=== PATIENT | male | born 1940 | race Caucasian/White ===

== ENCOUNTER → 2017-01-06 | Outpatient (CLI) | payer MEDICARE ==
--- NOTE | 2017-01-06 07:55 | US ---
EXAMINATION TYPE: US bladder DATE OF EXAM: 01/06/2017 7:44 AM COMPARISON: NONE CLINICAL HISTORY: 76-year-old male N39.41 Urge Incontinence. TECHNIQUE: Multiple sonographic images of the bladder were obtained. FINDINGS: SMART GRID ENGINEER NOTES: Large body habitus, prostate prominent Initial underdistention of the bladder limits its evaluation. There is prevoid volume of 30 mL. Only the right ureteral jet was seen. Post Void Residual Volume: 4.3 mL. Normal Post Void Residual (less than 50ml): yes IMPRESSION: 1. Initial underdistention of the bladder limits its evaluation with a prevoid bladder volume of 30 m L. 2. Postvoid bladder volume of 4 mL, within normal limits; no sonographic evidence for urinary retenti on. 3. Intensive Care Anaesthetist notes a prominent prostate gland during real-time scanning.
== END | disposition home or self-care (01) ==
LOC: RADUSWWP 07:18
PROVIDERS: ATTEND Family Medicine
DX: N32.89 Other specified disorders of bladder (principal)
CPT/HCPCS: 76857

== ENCOUNTER 2017-03-31 10:28 | Day surgery (SDC) | payer MEDICARE ==
[2017-03-29 15:57] VITALS: BMI 34.7
[~2017-03-31 10:28] MED LIST: LACTATED RINGERS 1,000 ML IV SCH; LIDOCAINE 1% 20 ML VIAL (10MG/ML) FOR IV START INTRADERMA PRN
[2017-03-31] MEDS ORDERED: LIDOCAINE 1% INJ 10MG/ML (20 ML MDV) ONE (11:00)
[2017-03-31] MEDS ORDERED: PROPOFOL 10 MG/ML 20 ML VIAL IV ONE (11:00)
[2017-03-31 11:02] VITALS: RESP 16; TEMP 98.1
--- NOTE | 2017-03-31 11:34 | P.PCN ---
Date of Procedure: 03/31/17 Preoperative Diagnosis: Postoperative Diagnosis: Procedure(s) Performed: BRIEF HISTORY: Patient is a 76-year-old pleasant white male, scheduled for an elective colonoscopy as a part of screening for colorectal neoplasia. PROCEDURE PERFORMED: Colonoscopy. PREOPERATIVE DIAGNOSIS: Screening for colorectal neoplasia. IV sedation per Anesthesia. PROCEDURE: After informed consent was obtained, the patient, was brought into the endoscopy unit. IV sedation was administered by Anesthesia under continuous monitoring. Digital rectal examination was normal. Initially the Olympus CF- 160 flexible video colonoscope was then inserted in the rectum, gradually advanced into the cecum without any difficulty. Careful examination was performed as the scope was gradually being withdrawn. Ileocecal valve and the appendiceal orifice were visualized and appeared normal. Prep was excellent. Mucosa of the cecum, ascending colon, transverse colon, descending colon, sigmoid colon, and rectum appeared normal. Retroflexion was performed in the rectum and no lesions were seen. The patient tolerated the procedure well. IMPRESSION: Normal-appearing colon from rectum to cecum with no evidence of colorectal neoplasia . RECOMMENDATIONS: Findings of this examination were discussed with the patient is well as his family. He was advised to be a high-fiber diet. At his age, I would not recommend any further screening colonoscopy. Implants: Indications for Procedure: Operative Findings: Description of Procedure:
[2017-03-31 12:02] VITALS: PULSE 58
[2017-03-31 12:29] VITALS: BP 137/69
== END 2017-03-31 12:39 | disposition home or self-care (01) ==
LOC: ORWHC2ENDO 10:28
PROVIDERS: ATTEND Internal Medicine Gastroenterology
DX: Z12.11 Encounter for screening for malignant neoplasm of colon (principal); I10 Essential (primary) hypertension; I25.10 Atherosclerotic heart disease of native coronary artery without angina pectoris; J44.9 Chronic obstructive pulmonary disease, unspecified; K21.9 Gastro-esophageal reflux disease without esophagitis; E07.9 Disorder of thyroid, unspecified; Z91.048 Other nonmedicinal substance allergy status; Z79.82 Long term (current) use of aspirin; Z79.891 Long term (current) use of opiate analgesic; Z79.899 Other long term (current) drug therapy; Z95.1 Presence of aortocoronary bypass graft
CPT/HCPCS: G0121; J2001; J2704

== ENCOUNTER 2021-08-12 15:03 | Emergency (ER) | payer MEDICARE ==
[2021-08-12] MEDS ORDERED: ACETAMINOPHEN TAB 500 MG TAB PO STA (19:33)
[2021-08-12] MEDS ORDERED: SODIUM CHLORIDE 0.9% 500 ML 500 ML IV STA (19:33)
--- NOTE | 2021-08-12 19:57 | XR ---
EXAMINATION TYPE: XR chest 1V portable DATE OF EXAM: 08/12/2021 COMPARISON: 06/12/2019 INDICATION: Cough TECHNIQUE: Single frontal view of the chest is obtained. FINDINGS: The heart size is normal. The pulmonary vasculature is normal. Mild bibasilar infiltrates are present. Correlate for atelectasis or pneumonia. Consider atypical pne umonia. IMPRESSION: 1. Mild bibasilar infiltrates. Correlate for atelectasis, pneumonia, consider atypical pneumonia. Fol low-up can be performed.
[2021-08-12] MEDS ORDERED: SODIUM CHLORIDE 0.9% 50 ML IVPB ONE (20:00)
[2021-08-12] MEDS ORDERED: CASIRIVIMAB (REGN10933) (EUA) 600 MG, IMDEVIMAB (REGN10987) (EUA) 600 MG in SODIUM CHLO... IVPB ONE (20:00)
[2021-08-12 20:11] LABS: Albumin 3.2 g/dL (3.5-5.0); Calcium 8.1 mg/dL (8.4-10.2); Potassium 4.4 mmol/L (3.5-5.1); Total Bilirubin 0.4 mg/dL (0.2-1.3); Total Protein 5.9 g/dL (6.3-8.2)
[2021-08-12 20:13] LABS: Basophils % (A) 0 %; Eosinophils # (A) 0.1 k/uL (0-0.7); Eosinophils % (A) 1 %; HCT 44.7 % (39.0-53.0); HGB 14.9 gm/dL (13.0-17.5); Lymphocytes # (A) 1.1 k/uL (1.0-4.8); Lymphocytes % (A) 25 %; MCH 30.7 pg (25.0-35.0); MCHC 33.4 g/dL (31.0-37.0); MCV 92.1 fL (80.0-100.0); Mean Platelet Volume 8.2; Monocytes # (A) 0.4 k/uL (0-1.0); Monocytes % (A) 9 %; Neutrophils # (A) 2.6 k/uL (1.3-7.7); Neutrophils % (A) 60 %; RBC 4.85 m/uL (4.30-5.90); RDW 13.9 % (11.5-15.5); WBC 4.4 k/uL (3.8-10.6)
[2021-08-12 20:39] LABS: Platelet Count 94 k/uL (150-450)
--- NOTE | 2021-08-12 21:09 | ED ---
URI HPI - General Chief Complaint: Upper Respiratory Infection Stated Complaint: Possible COVID,sent by pcp for o2 sat check Time Seen by Provider: 08/12/21 19:20 Source: patient, RN notes reviewed Mode of arrival: wheelchair Limitations: no limitations - History of Present Illness Initial Comments: Patient is an 80-year-old male with history of heart disease, hypertension, emphysema, presenting to the emergency department after testing positive for c ovid today. Patient states he started having some nausea symptoms about 6 days ago and developed a cough and chest congestion. He took a home covid test today which turned out positive, his doctor sent him in for monoclonal antibodies and a "check-up". He has been fully vaccinated. He states he's been having low- grade fevers, he did not take anything for this yet today. He denies any abdominal pain, nausea or vomiting, no chest pain. He states he does feel a little bit short of breath at times but states that is normal for him considering his emphysema. He has been doing his at home nebulizer treatments. Patient denies any dizziness or lightheadedness, he's been able to eat and drink without difficulty. Patient has no further complaints at this time. Upon arrival to the ER, his temperature is 100.3, 90% on room air, rest of vitals normal. - Related Data Home Medications Medication Instructions Recorded Confirmed Aspirin 81 mg PO DAILY 08/05/14 03/29/17 Ezetimibe [Zetia] 10 mg PO HS 08/05/14 03/29/17 HYDROcodone/APAP 10-325MG [[place] 1 tab PO DAILY PRN 08/05/14 03/29/17 10-325] Lisinopril [Zestril] 30 mg PO DAILY 08/05/14 03/29/17 carvediloL [Coreg*] 12.5 mg PO BID 08/05/14 03/29/17 methIMAzole [Tapazole] 5 mg PO DAILY 08/05/14 03/29/17 rOPINIRole HCL [Requip Xl] 2 mg PO HS 08/05/14 03/29/17 ALPRAZolam [Xanax] 0.25 mg PO DAILY PRN 03/29/17 03/29/17 Alfuzosin HCl [Alfuzosin HCl ER] 10 mg PO HS 03/29/17 03/29/17 Multivit-Min/FA/Lycopen/Lutein 1 each PO DAILY 03/29/17 03/29/17 [Centrum Silver Tablet] Nitroglycerin Sl Tabs [Nitrostat] 0.4 mg SUBLINGUAL Q5M PRN 03/29/17 03/29/17 Pantoprazole Sodium 40 mg PO HS 03/29/17 03/29/17 Tiotropium [place] [Spiriva] 1 cap INHALATION DAILY 03/29/17 03/31/17 clonazePAM [KlonoPIN] 1 mg PO BID 03/29/17 03/29/17 Previous Rx's Medication Instructions Recorded Azithromycin [Zithromax Z-pack (6 0 mg PO DIRECTED #6 tab 08/12/21 tabs)] Dexamethasone [Decadron] 6 mg PO DAILY 5 Days #5 tablet 08/12/21 Allergies Allergy/AdvReac Type Severity Reaction Status Date / Time adhesive tape AdvReac Unknown tears skin Verified 08/12/21 16:09 Review of Systems ROS Statement: Those systems with pertinent positive or pertinent negative responses have been documented in the HPI. ROS Other: All systems not noted in ROS Statement are negative. Past Medical History Past Medical History: Coronary Artery Disease (CAD), Cancer, Chest Pain / Angina, GERD/Reflux, Hypertension, Prostate Disorder, Thyroid Disorder Additional Past Medical History / Comment(s): EMPHYSEMA, DECREASED LUNG CAPACITY, OCCASIONAL "BURNING " IN CHEST. CONSTIPATION, DIVERTICULITIS, BACK PA IN, SKIN CANCER, ENLARGED THYROID, ENLARGED PROSTATE. History of Any Multi-Drug Resistant Organisms: None Reported Past Surgical History: Back Surgery, Coronary Bypass/CABG, Heart Catheterization With Stent Additional Past Surgical History / Comment(s): SPINAL FUSION, NECK FUSION- HAS " METAL CAGE IN LOWER BACK & NECK" CABG X3 (1994) Past Anesthesia/Blood Transfusion Reactions: No Reported Reaction Date of Last Stent Placement:: 2004 Past Psychological History: Anxiety Smoking Status: Never smoker Past Alcohol Use History: Occasional Past Drug Use History: None Reported - Past Family History Mother Family Medical History: Cancer Additional Family Medical History / Comment(s): BONE CANCER Daughter(s) Family Medical History: Cancer Additional Family Medical History / Comment(s): FROM [place] General Exam - General Exam Comments Initial Comments: GENERAL: Patient is well-developed and well-nourished. Patient is nontoxic and in no acute distress. HEAD: Atraumatic, normocephalic. EYES: Pupils equal round and reactive to light, extraocular movements intact, sclera anicteric, conjunctiva are normal. Eyelids were unremarkable. ENT: TMs normal, nares patent, oropharynx clear without exudates. Moist mucous membranes. NECK: Normal range of motion, supple without lymphadenopathy or JVD. LUNGS: Unlabored respirations. Scattered wheezes throughout HEART: Regular rate and rhythm without murmurs, rubs or gallops. ABDOMEN: Soft, nontender, normoactive bowel sounds. No guarding, no rebound. No masses appreciated. MUSCULOSKELETAL: Normal extremities with adequate strength and normal range of motion, no pitting or edema. No clubbing or cyanosis. NEUROLOGICAL: Patient is alert and oriented x 3. Normal speech, normal gait. PSYCH: Normal mood, normal affect. SKIN: Warm, Dry, normal turgor, no rashes or lesions noted. Limitations: no limitations Course Vital Signs 08/12/21 16:05 Temperature 100.3 F H Pulse Rate 80 Respiratory 18 Rate Blood Pressure 150/75 O2 Sat by Pulse 90 L Oximetry Medical Decision Making - Medical Decision Making Patient is a 80-year-old male with history of heart disease, emphysema, presenting after testing positive at home for covid. He is requesting monoclona l antibodies. He did have a slight temperature on arrival, 90% on room air. Does have some scattered wheezes throughout. He is in no acute distress. Basic labs are stable, Chest x-ray shows mild bibasilar infiltrates, correlate for atelectasis, pneumonia. I do not feel like this a big change from his previous. Patient received monoclonal antibodies without adverse side effects. His vital signs remained stable. He did receive some fluids as well. I did recommend for him to continue with his breathing treatments at home, I will start him on an antibiotic for possible pneumonia as well as a short course of steroids. He is agreeable to this plan of care. He will follow up with his pr imary care. Return parameters were discussed with him and he verbalized understanding. Case discussed with Dr. Gonzalez. - Lab Data Result diagrams: 08/12/21 19:50 08/12/21 19:50 Lab Results 08/12/21 08/12/21 08/12/21 Range/Units 19:50 19:50 19:50 WBC 4.4 (3.8-10.6) k/uL RBC 4.85 (4.30-5.90) m/uL Hgb 14.9 (13.0-17.5) gm/dL Hct 44.7 (39.0-53.0) % MCV 92.1 (80.0-100.0) fL MCH 30.7 (25.0-35.0) pg MCHC 33.4 (31.0-37.0) g/dL RDW 13.9 (11.5-15.5) % Plt Count 94 L (150-450) k/uL MPV 8.2 Neutrophils % 60 % Lymphocytes % 25 % Monocytes % 9 % Eosinophils % 1 % Basophils % 0 % Neutrophils # 2.6 (1.3-7.7) k/uL Lymphocytes # 1.1 (1.0-4.8) k/uL Monocytes # 0.4 (0-1.0) k/uL Eosinophils # 0.1 (0-0.7) k/uL Basophils # 0.0 (0-0.2) k/uL Manual Slide Review Performed Sodium 137 (137-145) mmol/L Potassium 4.4 (3.5-5.1) mmol/L Chloride 100 (98-107) mmol/L Carbon Dioxide 33 H (22-30) mmol/L Anion Gap 4 mmol/L BUN 32 H (9-20) mg/dL Creatinine 1.53 H (0.66-1.25) mg/dL Est GFR (CKD-EPI)AfAm 48 (>60 ml/min/1.73 sqM) Est GFR (CKD-EPI)NonAf 42 (>60 ml/min/1.73 sqM) Glucose 135 H (74-99) mg/dL Calcium 8.1 L (8.4-10.2) mg/dL Total Bilirubin 0.4 (0.2-1.3) mg/dL AST 28 (17-59) U/L ALT 18 (4-49) U/L Alkaline Phosphatase 66 (38-126) U/L Total Protein 5.9 L (6.3-8.2) g/dL Albumin 3.2 L (3.5-5.0) g/dL Coronavirus (PCR) Detected A (Not Detectd) Disposition Clinical Impression: COVID-19 Disposition: HOME SELF-CARE Condition: Stable Instructions (If sedation given, give patient instructions): Coronavirus Disease 2019 (COVID-19) Additional Instructions: Please return to the Emergency Department if symptoms worsen or any other concerns. Continue with your breathing treatments at home. Take prescribed medications. May use Tylenol for any fevers. Please follow-up with your primary care physician in 1-3 days. Prescriptions: Dexamethasone [Decadron] 6 mg PO DAILY 5 Days #5 tablet Azithromycin [Zithromax Z-pack (6 tabs)] 0 mg PO DIRECTED #6 tab Is patient prescribed a controlled substance at d/c from ED?: No Referrals: Alpesh Caruso DO [Primary Care Provider] - 1-2 days Time of Disposition: 22:11
[2021-08-12 22:33] VITALS: BP 148/80; PULSE 71; RESP 20; TEMP 98.9
== END 2021-08-12 22:33 | disposition home or self-care (01) ==
LOC: EC 15:03
DX: U07.1 COVID-19 (principal); I25.119 Atherosclerotic heart disease of native coronary artery with unspecified angina pectoris; K21.9 Gastro-esophageal reflux disease without esophagitis; I10 Essential (primary) hypertension; Z79.82 Long term (current) use of aspirin; Z79.899 Other long term (current) drug therapy; Z95.5 Presence of coronary angioplasty implant and graft; Z91.09 Other allergy status, other than to drugs and biological substances
CPT/HCPCS: 36415; 71045; 80053; 85025; 87635; 96360; 96361; 99285

== ENCOUNTER → 2024-06-20 | Outpatient (CLI) | payer MEDICARE ==
[2024-06-20 15:44] LABS: ALT 9 U/L (10-49); AST 11 U/L (14-35); Albumin 3.6 g/dL (3.8-4.9); Alkaline Phosphatase 87 U/L (41-126); Calcium 8.9 mg/dL (8.7-10.3); Carbon Dioxide 27.6 mmol/L (21.6-31.8); Chloride 110 mmol/L (96-109); Chol/HDL Ratio 4.24 Ratio; Glucose 122 mg/dL (70-110); LDL Cholesterol,Calculated 119.1 mg/dL (0.0-131.0); Potassium 5.5 mmol/L (3.5-5.5); Sodium 147 mmol/L (135-145); Total Bilirubin 0.2 mg/dL (0.3-1.2); Total Protein 5.6 g/dL (6.2-8.2)
== END | disposition home or self-care (01) ==
LOC: LABWHC1 08:22
PROVIDERS: ATTEND Internal Medicine Interventional Cardiology
DX: E78.2 Mixed hyperlipidemia (principal)
CPT/HCPCS: 36415; 80053; 80061

== ENCOUNTER → 2024-09-07 | Outpatient (CLI) | payer MEDICARE ==
[2024-09-07 18:28] LABS: Basophils # (A) 0.04 X 10*3/uL (0.00-0.10); Basophils % (A) 0.5 %; Eosinophils # (A) 0.21 X 10*3/uL (0.04-0.35); Eosinophils % (A) 2.7 %; HCT 43.7 % (39.6-50.0); HGB 12.5 g/dL (13.0-17.0); Lymphocytes # (A) 1.45 X 10*3/uL (0.90-5.00); Lymphocytes % (A) 18.4 %; MCH 28.2 pg (27.0-32.0); MCHC 28.6 g/dL (32.0-37.0); MCV 98.4 FL (80.0-97.0); Mean Platelet Volume 10.7 FL (9.5-12.2); Monocytes % (A) 10.2 %; NRBC Per 100 WBC 0 X 10*3/uL (0.00-0.01); Neutrophils # (A) 5.36 X 10*3/uL (1.80-7.70); Neutrophils % (A) 67.9 %; Platelet Count 131 X 10*3/uL (140-440); RBC 4.44 X 10*6/uL (4.40-5.60); RDW 12.6 % (11.5-14.5); WBC 7.88 X 10*3/uL (4.50-10.00)
[2024-09-07 18:56] LABS: BUN/Creat Ratio 15.46 Ratio (12.00-20.00); Blood Urea Nitrogen 37.1 mg/dL (9.0-27.0); Glucose 121 mg/dL (70-110); Magnesium 2.1 mg/dL (1.5-2.4); Phosphorus 3.6 mg/dL (2.4-5.1)
[2024-09-07 18:57] LABS: ALT 11 U/L (10-49); AST 15 U/L (14-35); Albumin 3.8 g/dL (3.8-4.9); Albumin/Globulin Ratio 1.81 Ratio (1.60-3.17); Alkaline Phosphatase 99 U/L (41-126); Calcium 8.6 mg/dL (8.7-10.3); Carbon Dioxide 27.8 mmol/L (21.6-31.8); Chloride 107 mmol/L (96-109); Globulin 2.1 g/dL (1.6-3.3); Potassium 5.4 mmol/L (3.5-5.5); Sodium 146 mmol/L (135-145); Total Bilirubin 0.3 mg/dL (0.3-1.2); Total Protein 5.9 g/dL (6.2-8.2)
[2024-09-07 19:40] LABS: Appearance,Urine Clear (Clear); Bilirubin,Urine Negative (Negative); Blood,Urine Trace (Negative); Color,Urine Yellow (Yellow); Ketones,Urine Negative (Negative); Nitrite,Urine Negative (Negative); PH, Urine 5.5; Urobilinogen,Urine 0.2 E.U./DL
[2024-09-07 19:45] LABS: Bacteria,Urine None Seen (None Seen)
== END | disposition home or self-care (01) ==
LOC: LABWHC1 13:39
PROVIDERS: ATTEND Internal Medicine
DX: E55.9 Vitamin D deficiency, unspecified (principal); D64.9 Anemia, unspecified; N25.81 Secondary hyperparathyroidism of renal origin; N39.0 Urinary tract infection, site not specified
CPT/HCPCS: 36415; 80053; 81001; 82306; 83735; 83970; 84100; 85025

== ENCOUNTER → 2024-11-16 | Outpatient (CLI) | payer MEDICARE ==
--- NOTE | 2024-11-16 14:15 | US ---
EXAMINATION TYPE: US kidneys/renal and bladder DATE OF EXAM: 11/16/2024 COMPARISON: Ultrasound bladder 01/06/2017. CLINICAL INDICATION: Male, 83 years old with history of N18.4 CHRONIC KIDNEY DISEASE, STAGE 4 (SEVERE ); CKD 4 TECHNIQUE: Grayscale imaging of the bilateral kidneys and urinary bladder: FINDINGS: EXAM MEASUREMENTS: Right Kidney: 10.8 x 5.5 x 4.9 cm Left Kidney: 11.1 x 4.3 x 4.7 cm Right Kidney: Cortical thinning. Left Kidney: Cortical thinning echogenic area seen .6 x .4 cm mid pole. Bladder: Anechoic Bilateral Jets seen: yes. There is no evidence for hydronephrosis at this point in time. No right renal calculi. Nonobstructing left renal lower pole calculus with twinkle artifact. Corticomedullary differentiation is maintained bilaterally. Cortical thinning bilaterally. No masses are identified. The urinary bladder is anecho ic. IMPRESSION: 1. No hydronephrosis. 2. Nonobstructive left renal calculus. 3. Findings of bilateral chronic medical renal disease. [facility], , 11/16/2024 2:12 PM
== END | disposition home or self-care (01) ==
LOC: RADUSWWP 13:28
PROVIDERS: ATTEND Internal Medicine
DX: N20.0 Calculus of kidney (principal); N18.4 Chronic kidney disease, stage 4 (severe)
CPT/HCPCS: 76770

== ENCOUNTER → 2024-11-16 | Outpatient (CLI) | payer MEDICARE ==
[2024-11-17 02:38] LABS: Basophils # (A) 0.01 X 10*3/uL (0.00-0.10); Basophils % (A) 0.2 %; Eosinophils # (A) 0.15 X 10*3/uL (0.04-0.35); Eosinophils % (A) 2.3 %; HCT 36.7 % (39.6-50.0); HGB 10.5 g/dL (13.0-17.0); Lymphocytes # (A) 1.41 X 10*3/uL (0.90-5.00); Lymphocytes % (A) 21.2 %; MCH 28.7 pg (27.0-32.0); MCHC 28.6 g/dL (32.0-37.0); MCV 100.3 FL (80.0-97.0); Mean Platelet Volume 11.8 FL (9.5-12.2); Monocytes # (A) 0.55 X 10*3/uL (0.20-1.00); Monocytes % (A) 8.3 %; NRBC Per 100 WBC 0 X 10*3/uL (0.00-0.01); Neutrophils % (A) 67.7 %; Platelet Count 125 X 10*3/uL (140-440); RBC 3.66 X 10*6/uL (4.40-5.60); RDW 13.2 % (11.5-14.5); WBC 6.64 X 10*3/uL (4.50-10.00)
[2024-11-17 03:59] LABS: ALT 10 U/L (10-49); AST 16 U/L (14-35); Albumin 3.6 g/dL (3.8-4.9); Albumin/Globulin Ratio 1.57 Ratio (1.60-3.17); Alkaline Phosphatase 97 U/L (41-126); BUN/Creat Ratio 15.26 Ratio (12.00-20.00); Blood Urea Nitrogen 35.1 mg/dL (9.0-27.0); Calcium 8.6 mg/dL (8.7-10.3); Carbon Dioxide 29.6 mmol/L (21.6-31.8); Chloride 107 mmol/L (96-109); Globulin 2.3 g/dL (1.6-3.3); Glucose 106 mg/dL (70-110); Magnesium 2.3 mg/dL (1.5-2.4); Phosphorus 3.3 mg/dL (2.4-5.1); Potassium 5.2 mmol/L (3.5-5.5); Sodium 147 mmol/L (135-145); T4, Free (Free Thyroxine) 1.12 ng/dL (0.80-1.80); Total Bilirubin <0.2 mg/dL (0.3-1.2); Total Protein 5.9 g/dL (6.2-8.2); Uric Acid 7.4 mg/dL (3.7-8.7)
== END | disposition home or self-care (01) ==
LOC: LABWHC1 14:08
PROVIDERS: ATTEND Family Medicine
DX: E05.90 Thyrotoxicosis, unspecified without thyrotoxic crisis or storm (principal); E66.9 Obesity, unspecified; N18.4 Chronic kidney disease, stage 4 (severe)
CPT/HCPCS: 36415; 80053; 82306; 83036; 83735; 83970; 84100; 84439; 84443; 84550; 85025